=== PATIENT | male | born 1955 | race African-American/Black ===

== ENCOUNTER 2017-02-26 10:20 | Emergency (ER) | payer OTHER ==
[~2017-02-26] VITALS: Ht 167.6 cm; Wt 82.1 kg
--- NOTE | 2017-02-26 12:18 | RADIOLOGY REPORT ---
EXAMINATION: XR SHOULDER, LEFT CLINICAL INFORMATION: Trauma COMPARISON: 07/27/2012 TECHNIQUE: AP external rotation, Grashey, scapular Y, and axillary views of the left shoulder. FINDINGS: Radiopaque anchors are seen in the left humeral head. No acute fracture or dislocation. The glenohumeral joint is appropriately aligned. The joint space is maintained. The acromioclavicular joint is appropriately aligned. The widened appearance at the acromioclavicular joint is likely postsurgical. The visualized lung is clear. IMPRESSION: No acute fracture or malalignment. Postsurgical changes at the left shoulder.
--- NOTE | 2017-02-26 12:30 | ED UPPER/LOWER EXTREMITY COMPL ---
See Addendum History of Present Illness General Chief Complaint: Upper Extremity Injury Stated Complaint: LFT SHOULDER INJURY AT WORK Source: patient Exam Limitations: no limitations Vital Signs & Intake/Output Vital Signs & Intake/Output Vital Signs Date Time Temp Pulse Resp B/P B/P Pulse O2 O2 Flow FiO2 Mean Ox Delivery Rate 02/26 1301 98.3 89 18 132/74 100 Room Air 02/26 1048 98.1 82 18 145/86 98 Room Air Allergies Coded Allergies: MDX - Acetaminophen (From Percocet) (UNKNOWN 10/03/12) PERCOCET PER ANTIBIOTIC ORDER SHEET - SJS MDX - Oxycodone (From Percocet) (UNKNOWN 10/03/12) PERCOCET PER ANTIBIOTIC ORDER SHEET - SJS Reconcile Medications Cyclobenzaprine HCl 10 MG TABLET 1 TAB PO QPM PRN MUSCLE RELAXOR Meloxicam (Mobic) 15 MG TABLET 1 TAB PO DAILY PRN pain Methylprednisolone. (Medrol) 4 MG TAB.DS.PK 1 DP PO AD INFLAMMATION 6 on day 1 then reduce by one tablet daily until gone Triage Note: PT STATES THAT HE HAD ROTATOR CUFF SURGERY IN 2012 AND THAT LAST WEDNESDAY HE LIFTED A HEAVY TALE GAIT OF TRUCK AND HAS BEEN HAVING PAIN TO L SIDE SHOULDER UPPER ARM SINCE. UNABLE TO SLEEP AT NIGHT DUE TO THE PAIN. PT TOOK MOTRIN FOR THE PAIN. Triage Nurses Notes Reviewed? yes Onset: Gradual Duration: constant Timing: recent history Severity: severe Severity Numbers: 7 HPI: Patient is a 61-year-old male who presents to emergency room with concerns of left shoulder and neck pain 5 days. Patient states that APPROXIMATELY 3 years ago he had a left shoulder rotator cuff repair performed by with ORTHOPEDIC surgeon Dr. Mattson where he states that 5 days ago he was lifting a heavy tailgate over his shoulders where he noted that evening left lateral neck pain and left shoulder pain with left upper extremity radiating paresthesia and pain to his fingertips. She currently is on oxycodone with minimal relief of symptoms Patient denies any extremity swelling or weakness. Patient states that left upper extremities and neck movements to the right make symptoms worse (MARK MARKS) Past History Travel History Traveled to [place] past 21 day No Medical History Any Pertinent Medical History? see below for history Neurological: NONE EENT: NONE Cardiovascular: hypertension Respiratory: NONE Gastrointestinal: NONE Hepatic: NONE Renal: NONE Musculoskeletal: NONE Psychiatric: NONE Endocrine: NONE Blood Disorders: NONE Cancer(s): NONE ENVIRONMENTAL SERVICES ASSOCIATE/Reproductive: NONE Surgical History Surgical History: LEFT ROTATOR CUFF REPAIR Psychosocial History What is your primary language Czech Tobacco Use: Never used ETOH Use: denies use Illicit Drug Use: denies illicit drug use Family History Hx Contributory? No (MARK MARKS) Review of Systems Review of Systems Constitutional: Reports: no symptoms. EENTM: Reports: no symptoms. Respiratory: Reports: no symptoms. Cardiovascular: Reports: no symptoms. Gastrointestinal/Abdominal: Reports: no symptoms. Genitourinary: Reports: no symptoms. Musculoskeletal: Reports: see HPI, joint pain. Skin: Reports: no symptoms. Neurological/Psychological: Reports: see HPI, numbness, paresthesia. Hematologic/Endocrine: Reports: no symptoms. Immunological: Reports: no symptoms. All Other Systems: Reviewed and Negative (MARK MARKS) Physical Exam Physical Exam General Appearance: no apparent distress, alert, comfortable Peripheral Pulses: 2+ radial (R), 2+ radial (L) Neurologic/Tendon: normal motor functions, normal tendon functions, responds to pain, no evidence tendon injury, no pulse deficit Skin: intact, normal color, warm/dry Comments: Well-developed well-nourished no apparent distress. HEENT: Atraumatic, extraocular motion intact Neck: Supple, no lymphadenopathy Normal inspection, noted left lateral muscular point tenderness, mild decreased active range of motion no central spinous tenderness Back: Nontender Respiratory: No respiratory distress Extremities: Left shoulder normal inspection, generalized glenohumeral point tenderness, full active range of motion with mild pain above 90 of shoulder flexion abduction Pain elicited with empty can test Left upper extremity decreased dermatome sensation to medial aspect of hand and forearm DTRs intact Neuro: Alert and oriented x3 Psych: Mood affect normal, normal memory normal judgment. (MARK MARKS) Progress Differential Diagnosis: arterial insufficiency, compartment syndrome, contusion, dislocation, DVT, fracture, gout, septic arthritis, sprain, tendon injury, CERVICAL RADICULOPATHY Plan of Care: Due to history of present illness and exam findings patient has concerns of left shoulder strain and cervical radiculopathy. X-rays were unremarkable for acute process. Patient was placed in the left shoulder immobilizer for comfort and stability pre-and post vascular was intact radial pulse +2 Patient was strongly advised to follow up with surgeon Diagnostic Imaging: Viewed by Me: Radiology Read. Radiology Impression: no acute abnormality, no fracture Comments: PATIENT: LUCAS MAGALLON PRESENT AGE: 61 PATIENT ACCOUNT NO: [id number] : 54 LOCATION: [facility] ORDERING PHYSICIAN: SHANNON CHIU DO (TBS) SERVICE DATE: 02/26/17 EXAM TYPE: RAD - XRY-SHOULDER COMPLETE-LEFT EXAMINATION: XR SHOULDER, LEFT CLINICAL INFORMATION: Trauma COMPARISON: 07/27/2012 TECHNIQUE: AP external rotation, Grashey, scapular Y, and axillary views of the left shoulder. FINDINGS: Radiopaque anchors are seen in the left humeral head. No acute fracture or dislocation. The glenohumeral joint is appropriately aligned. The joint space is maintained. The acromioclavicular joint is appropriately aligned. The widened appearance at the acromioclavicular joint is likely postsurgical. The visualized lung is clear. IMPRESSION: No acute fracture or malalignment. Postsurgical changes at the left shoulder. DICTATED BY: MELQUIADES WHITING,JOSE DATE/TIME DICTATED:02/26/171212 DUMP TRUCK OPERATOR:SHERRI (MARK MARKS) Departure Departure Disposition: HOME OR SELF CARE Condition: Stable Clinical Impression Primary Impression: Left shoulder strain Secondary Impressions: Cervical radiculopathy Referrals: LINDSAY WHITING,BAUDILIO Luis (PCP/Family) Additional Instructions: As discussed begin icing the area directly 20 minutes every 2 hours. Begin the prescription on meloxicam for pain and inflammation, begin the prescription of Medrol Dosepak for inflammation and begin the prescription of cyclobenzaprine for muscle relaxation. Prescriptions are waiting at [facility] pharmacy. Continue home medications especially your previously prescribed OxyContin. If no better on Wednesday follow-up with your surgeon Dr. Mattson. If symptoms worsen return to emergency room. Begin using the shoulder immobilizer for support AND stability Departure Forms: Customer Survey Employee [employer] General Discharge Information Prescriptions: Current Visit Scripts Meloxicam (Mobic) 1 TAB PO DAILY PRN pain #15 TAB Cyclobenzaprine HCl 1 TAB PO QPM PRN MUSCLE RELAXOR #10 TAB Methylprednisolone. (Medrol) 1 DP PO AD #1 DP 6 on day 1 then reduce by one tablet daily until gone (MARK MARKS) PA/TEST FIXTURE DESIGNER Co-Sign Statement Statement: ED Attending supervision documentation- [] I saw and evaluated the patient. I have also reviewed all the pertinent lab results and diagnostic results. I agree with the findings and the plan of care as documented in the PA's/TEST FIXTURE DESIGNER's documentation. [X] I have reviewed the ED Record and agree with the PA's/TEST FIXTURE DESIGNER's documentation. [] Additions or exceptions (if any) to the PAs/TEST FIXTURE DESIGNER's note and plan are summarized below: [] (SHANNON CHIU DO
[2017-02-26] MEDS ORDERED: CYCLOBENZAPRINE10 M1 PO (12:44)
[2017-02-26] MEDS ORDERED: MOBIC15 M1 PO (12:44)
[2017-02-26] MEDS ORDERED: MEDROL4 M2 PO (12:44)
[2017-02-26 13:01] VITALS: BP 132/74
== END 2017-02-26 13:02 ==
LOC: ERH 10:20
DX: S46.912A Strain of unspecified muscle, fascia and tendon at shoulder and upper arm level, left arm, initial encounter (principal); M54.12 Radiculopathy, cervical region; X58.XXXA Exposure to other specified factors, initial encounter; Y92.9 Unspecified place or not applicable; Y93.9 Activity, unspecified
CPT/HCPCS: 73030-LT